=== PATIENT | male | born 1950 | race Caucasian/White ===

== ENCOUNTER 2022-12-08 12:16 | Outpatient (CLI) | payer OTHER, SELFPAY ==
--- NOTE | 2022-12-08 12:47 | W.ANESCHARGE ---
Anesthesia Charges Start Date/Time Anesthesia Start Date: 12/08/22 Anesthesia Start Time: 13:01 Stop Date/Time Anesthesia Stop Date: 12/08/22 Anesthesia Stop Time: 13:27 Summary Extremes of Age - Over 70 or under 1: MDA
--- NOTE | 2022-12-08 13:30 | W.ANESCHARGE ---
Anesthesia Charges Start Date/Time Anesthesia Start Date: 12/08/22 Anesthesia Start Time: 13:01 Stop Date/Time Anesthesia Stop Date: 12/08/22 Anesthesia Stop Time: 13:27
== END 2022-12-08 12:17 | disposition home or self-care (01) ==
LOC: OP CLINIC 12:18
PROVIDERS: PCP Family Medicine; Visit Provider Internal Medicine Gastroenterology
DX: Z12.11 Encounter for screening for malignant neoplasm of colon (principal); K63.5 Polyp of colon; K57.30 Diverticulosis of large intestine without perforation or abscess without bleeding
CPT/HCPCS: 00811; 45380; 88305; 99100; J2704

== ENCOUNTER 2023-03-18 13:45 | Outpatient (RCR) | payer OTHER, SELFPAY ==
--- NOTE | 2023-03-12 12:27 | PT.OPEX ---
[facility] PT [facility] Outpatient Eval Start: 03/12/23 07:56 Freq: Status: Active Protocol: Document 03/12/23 07:56 AMS (Rec: 03/12/23 12:23 AMS [id number]) E-signed By Michaela Jenkins PT Physical Therapy Outpatient Evaluation Insurance Information Recert Due Date 06/05/23 Insurance Name [employer],Medicare B Medical Diagnosis Left biceps tendinitis Left rotator cuff tendinopathy Left shoulder pain Treating Diagnosis Left shoulder pain Muscle weakness Referring SALVADOR James Subjective Subjective New patient to my clinic. He has seen Dr. Stanton in the past for orthopedic care including this left shoulder. Saw Dr. Stanton on 12/18/2020 for left shoulder concerns, diagnosed as a left small rotator cuff tear versus tendinosis. He has a history of right shoulder RCR, SCD, DCE, biceps tenotomy 2014. Also has a pacemaker. Last treatment for this left shoulder was modified activities, physical therapy, oral medications. Reports over the last 6 months noticing worsening pain of the left shoulder. Intermittent sharp pain, points to the lateral aspect of his shoulder. Constant dull pain 2/10. Notices shoulder weakness, wake from sleep pain, overall pain getting worse. No known injury or event. Treats symptomatically. Cannot recall doing physical therapy for the shoulder in 2020. He is on daily warfarin. -Real Hussein, 02/24/23, confirmed by patient Patient, right-hand dominant, presents with primary concern of chronic left shoulder pain. He states he will be having an MRI done as well as maybe injections in March of 2023 prior to his cruise in April of 2023 d/t chronicity of symptoms and worsening nature. X-rays were done and unremarkable. He states it has been gradually getting worse over the last couple months, but first started noticing it 2+ years ago. No injury that he can recall. He describes it as sore with activity, dull ache at rest, and eases with rest. He localizes the pain to the anterior/lateral shoulder . Easing factors include Tylenol and rest. Functional limitations/aggravating factors include golfing, reaching, lifting, sleeping on his left shoulder (although prefers to sleep on stomach), washing his back, carrying, and performing chores. States he has some tingling in the same area, but none into the arm or hand. Denies neck pain or hand weakness. Wakes up once or twice during the night , repositions, and goes back to sleep. Goals for physical therapy include golfing and avoiding surgery if he can. Pt states I can live with the pain as long as it doesn't get any worse. Current exercise include walking for exercise a few times per week around his property/errands. He states he knows he should do some resistance training, but hasn' t been doing this. He is unable to recall if he has tried physical therapy before for the left, but did have PT for the right shoulder after surgery in 2015. PMHx significant for atrial fibrillation with pacemaker implantation (most recently in 2014 per patient report), R rotator cuff repair, and chronic anticoagulation. Pain Comments 2 or 3/10 dull ache at rest 10/10 at worst Date of Last Physician Visit 02/24/23 Current Work Status Retired Occupation Retired Preferred Name Vick Precautions Treatment Precautions/Contraindications Pacemaker, hx of cardiac arrest in 2013, atrial fibrillation, chronic anticoagulation Objective Other/Pertinent Objective CERVICAL AROM WNL, pain-free SHOULDER AROM Flexion: R 170 L 170 Abduction: R 170 L 170* with painful arc Internal Rotation: R T10 L T12 * External Rotation: R 75 L 60* *Pain in lateral/anterior shoulder SHOULDER PROM Full and pain-free NECK/SHOULDER MMT: Shoulder flexion: R 4+/5 L 4+/ 5 Shoulder abduction: R 4+/5 L 4 +/5 Shoulder External Rotation at 0 deg: R 5/5 L 4/5 with pain* Shoulder Internal Rotation at 0 deg: R 5/5 L 4/5 with pain* Elbow flexion: R 5/5 L 5/5 with pain* Elbow extension R 5/5 L 5/5 SCAPULAR MECHANICS Did not assess Finisher Cold Rolling strength: Grossly within normal limits SPECIAL TESTS Shoulder impingement -Neers Test: - -Painful arc: + left between 60 and 120 deg Labral Tear -Biceps Load test: - -Christopher's test: + for pain left Rotator Cuff -Drop Arm Test: - -ER Lag: - -Belly Press: + for pain left -Bear hug: + for pain left -Empty can: + left Instability: -A/P load and shift: - JOINT MOBILITY/PALPATION Mild tenderness to palpation over bicipital groove, otherwise no other TTP. More anterior/posterior translation of humeral head as compared to R. [place]: Patient was educated on anatomy, physiology as it relates to current condition and HEP with use of handout/ [employer]. Patient verbalizes understanding and agrees with POC/goals Education: -Soreness rules with goal of symptoms returning to baseline within 24 hours and that evening Patient was instructed in the following exercises to improve strength, tissue tolerance, and/or mobility with verbal/ tactile cues as needed: Access Code: [email or web address] URL: [email or web address]/ Date: 03/12/2023 Prepared by: Michaela Jenkins Exercises - Sidelying Shoulder External Rotation Dumbbell - 1 x daily - 3-4 x weekly - 2 sets - 8 reps - 3 lbs weight - Shoulder Internal Rotation with Resistance - 1 x daily - 3-4 x weekly - 2 sets - 10-12 reps - Seated Bicep Curls Supinated with Dumbbells - 1 x daily - 3-4 x weekly - 2-3 sets - 8- 10 reps - 5-6 lbs weight Functional Test Performed & Score Quick DASH: 43.2%, 43.2/100 Assessment Assessment/Impression Pt is a 73 -year-old male who presents with concerns of chronic left shoulder pain and variable severity and irritability (2/10 pain at rest, 10/10 with certain movements). Signs and symptoms are likely indicating / consistent with degenerative partial rotator cuff tearing/ tendinopathy as well as biceps tendinopathy. On exam, patient also demonstrates notable objective findings including full shoulder AROM with painful abduction/ER/IR, normal cervical exam, positive painful arc, belly press, bear hug, and empty can, pain with resisted elbow flexion/ shoulder IR/ER, and decreased rotator cuff/scapular strength , leading to difficulties with golfing, reaching, lifting, sleeping on his left shoulder, washing his back, carrying, and performing chores. Tests for full rotator cuff tear were negative and no gross weakness noted. Pt will be having MRI done in near future d/t worsening of symptoms and chronic nature. X-rays unremarkable. PMHx significant for right rotator cuff repair in 2014 and cardiac hx/ pacemaker. Patient is appropriate for skilled physical therapy services to address the above deficits. Pt was agreeable with plan of care and goals established. Primary Functional Limitations golfing, reaching, lifting, sleeping on his left shoulder, washing his back, carrying, and performing chores Plan of Care Rehabilitation Potential Good Physical Therapy Goals In 2 sessions: Pt will demonstrate consistent HEP compliance to ensure progress in reaching established goals during course of care. In 6-8 sessions: Pt will demonstrate <2/10 pain with active range of motion of shoulder for improved ability to perform ADLs. Pt will improve Quick DASH by 20% for meaningful improvement in symptoms. Pt will report ability to sleep, including on left shoulder, with <2/10 pain for improved sleep quality. Pt will return to golfing/ADLs with <2/10 pain. Coordination/Communication With Referral Source Treatment Plan/Direct Interventions Gait Training,Joint Mobilization,Manual Therapy, Neuromuscular Re-ed,Self-Care/ Home Management,Therapeutic Activities,Therapeutic Exercises Frequency/Duration 1x/week for 6-8 weeks Patient Will Be Discharged From Therapy Completion of LTG(s), Independent w/HEP, Independently Progressing Evaluation Billing Untimed Code Treatment Minutes 25 Complexity Low Certification Information Initial Certification Date 03/12/23 Ending Certification Date 06/05/23 Provider Signature Shows Agreement With POC & Medical Necessity Physician Signature & Date Requested Please Sign/Date Here Physician Comment/Change : Physician NPI Number #
== END 2023-06-19 15:51 | disposition home or self-care (01) ==
PROVIDERS: PCP Family Medicine; Visit Provider Physician Assistant Surgical
DX: M75.22 Bicipital tendinitis, left shoulder (principal); M67.814 Other specified disorders of tendon, left shoulder; M25.512 Pain in left shoulder; M62.81 Muscle weakness (generalized); Z51.89 Encounter for other specified aftercare
CPT/HCPCS: 97110; 97140; 97161

== ENCOUNTER 2025-02-14 10:24 | Outpatient (CLI) | payer OTHER, SELFPAY | END 2025-02-14 10:25 | disposition home or self-care (01) | LOC: INJ CL 10:24 | PROVIDERS: PCP Family Medicine; Visit Provider Family Medicine | DX: M53.3 Sacrococcygeal disorders, not elsewhere classified (principal) | CPT/HCPCS: 27096; Q9966 ==

== ENCOUNTER 2025-02-16 19:12 | Outpatient (CLI) | payer OTHER, SELFPAY | END 2025-02-16 19:13 | disposition home or self-care (01) | LOC: AMB 02-20 17:22 | PROVIDERS: PCP Family Medicine; Visit Provider Emergency Medicine | DX: R47.01 Aphasia (principal); R29.810 Facial weakness | CPT/HCPCS: A0425; A0427 ==